=== PATIENT | female | born 1975 | race Asian ===

== ENCOUNTER → 2019-09-25 09:50 | Outpatient (CLI) | payer BC, SELFPAY ==
[2019-10-01 20:36] LABS: Pancreatic Elastase, Fecal >500 (>200)
== END ==
PROVIDERS: Referring Provider Nurse Practitioner Family; Visit Provider Nurse Practitioner Family
DX: R19.7 Diarrhea, unspecified (principal)
CPT/HCPCS: 82656

== ENCOUNTER → 2019-10-23 14:53 | Outpatient (CLI) | payer BC, SELFPAY ==
[2019-10-23 16:02] LABS: Appearance Urine UA CLEAR; Bilirubin Urine UA NEGATIVE (NEGATIVE); Color Urine UA YELLOW; Glucose Urine UA NEGATIVE (Negative); Ketones Urine UA TRACE (NEGATIVE); Leukocyte Esterase Urine UA NEGATIVE (NEGATIVE); Nitrite Urine UA NEGATIVE (Negative); Occult Blood Urine UA 1+ (Negative); Protein Urine UA NEGATIVE (Negative); Specific Gravity Urine UA 1.025 (1.000-1.035); Urobilinogen Urine UA 0.2 E.U./dL (0.2)
[2019-10-23 16:11] LABS: pH Urine UA 5.5 (4.5-8.0)
[2019-10-23 16:12] LABS: Amorphous Sediment Urine 1+; Bacteria Urine Moderate (10-30); Mucus Urine 2+ (Negative); RBC Urine 1-5/HPF (0-5/HPF); Squamous Epithelial Cell Urine 5-10 /HPF (0-5/HPF); WBC Urine 5-10/HPF (0-5/HPF)
[2019-10-23 16:13] LABS: Culture Indicated Urine Specimen Cultured
== END ==
PROVIDERS: PCP Internal Medicine; Referring Provider Specialist; Visit Provider Specialist
DX: R30.0 Dysuria (principal)
CPT/HCPCS: 81001; 87077; 87086; 87147

== ENCOUNTER → 2020-02-08 08:11 | Outpatient (CLI) | payer BC, SELFPAY ==
--- NOTE | 2020-02-08 | DI.MG.S_ITS ---
BILATERAL DIGITAL SCREENING MAMMOGRAM 3D/2D WITH CAD: 02/08/2020 CLINICAL: Routine screening. Comparison is made to exams dated: 08/24/2018 mammogram and 08/27/2016 mammogram - [facility]. The tissue of both breasts is heterogeneously dense. This may lower the sensitivity of mammography. Current study was also evaluated with a Computer Aided Detection (CAD) system. There are benign calcifications in the right breast. No significant masses, calcifications, or other findings are seen in either breast. There has been no significant interval change. IMPRESSION: BENIGN There is no mammographic evidence of malignancy. A 1 year screening mammogram is recommended. This exam was interpreted at Station ID: [id number]. NOTE: For mammograms, a report in lay terms will be sent to the patient. Approximately 15% of breast malignancies will not be visualized mammographically. In the management of a palpable breast mass, a negative mammogram must not discourage biopsy of a clinically suspicious lesion. Electronically Signed By: Gume colindres/lou:02/08/2020 10:43:00 letter sent: Normal Exam ACR BI-RADS Category 2: Benign Finding(s) 3342F
[2020-02-08 15:39] LABS: Hemoglobin A1C% w Est Avg Glu 6.5 % (4.0-6.0)
== END ==
PROVIDERS: PCP Internal Medicine; Referring Provider Internal Medicine; Visit Provider Internal Medicine
DX: Z12.31 Encounter for screening mammogram for malignant neoplasm of breast (principal); E13.9 Other specified diabetes mellitus without complications
CPT/HCPCS: 36415; 77063; 77067; 83036

== ENCOUNTER → 2020-08-01 14:39 | Outpatient (CLI) | payer BC, SELFPAY ==
[2020-08-01 15:37] LABS: Hemoglobin A1C% w Est Avg Glu 7.5 % (4.0-6.0)
[2020-08-01 15:41] LABS: Cholesterol 215 mg/dL (140-199); HDL Cholesterol 38 mg/dL (40-60); LDL Cholesterol Calculated 119 mg/dL (<100); Triglycerides 291 mg/dL (35-150)
== END ==
PROVIDERS: PCP Internal Medicine; Referring Provider Internal Medicine; Visit Provider Internal Medicine
DX: E11.9 Type 2 diabetes mellitus without complications (principal); Z13.6 Encounter for screening for cardiovascular disorders
CPT/HCPCS: 36415; 80061; 83036

== ENCOUNTER → 2020-08-29 12:58 | Outpatient (CLI) | payer BC, SELFPAY ==
[2020-08-29 14:08] LABS: Hemoglobin A1C% w Est Avg Glu 7.4 % (4.0-6.0)
== END ==
PROVIDERS: PCP Internal Medicine; Referring Provider Internal Medicine; Visit Provider Internal Medicine
DX: E11.9 Type 2 diabetes mellitus without complications (principal)
CPT/HCPCS: 36415; 83036

== ENCOUNTER → 2020-12-17 13:25 | Outpatient (CLI) | payer BC, SELFPAY ==
[2020-12-17 14:36] LABS: Hemoglobin A1C% w Est Avg Glu 6.1 % (4.0-6.0)
== END ==
PROVIDERS: PCP Internal Medicine; Referring Provider Internal Medicine; Visit Provider Internal Medicine
DX: E11.69 Type 2 diabetes mellitus with other specified complication (principal)
CPT/HCPCS: 36415; 83036

== ENCOUNTER → 2021-02-09 08:52 | Outpatient (CLI) | payer BC, SELFPAY ==
--- NOTE | 2021-02-09 | DI.MG.S_ITS ---
BILATERAL DIGITAL SCREENING MAMMOGRAM 3D/2D WITH CAD: 02/09/2021 CLINICAL: Routine screening. Family history of breast cancer. Comparison is made to exams dated: 02/08/2020 mammogram - [facility], 08/24/2018 mammogram, and 08/27/2016 mammogram - [facility]. The tissue of both breasts is heterogeneously dense. This may lower the sensitivity of mammography. Current study was also evaluated with a Computer Aided Detection (CAD) system. No significant masses, calcifications, or other findings are seen in either breast. There has been no significant interval change. IMPRESSION: NEGATIVE There is no mammographic evidence of malignancy. A 1 year screening mammogram is recommended. This exam was interpreted at Station ID: [id number]. NOTE: For mammograms, a report in lay terms will be sent to the patient. Approximately 15% of breast malignancies will not be visualized mammographically. In the management of a palpable breast mass, a negative mammogram must not discourage biopsy of a clinically suspicious lesion. Electronically Signed By: Jay hudson/lou:02/09/2021 11:42:39 letter sent: Normal Exam ACR BI-RADS Category 1: Negative 3341F
== END ==
PROVIDERS: PCP Internal Medicine; Referring Provider Internal Medicine; Visit Provider Internal Medicine
DX: Z12.31 Encounter for screening mammogram for malignant neoplasm of breast (principal); Z80.3 Family history of malignant neoplasm of breast
CPT/HCPCS: 77063; 77067

== ENCOUNTER → 2021-03-18 08:07 | Outpatient (CLI) | payer BC, SELFPAY ==
[2021-03-18 09:50] LABS: Alkaline Phosphatase 62 U/L (38-126); Glucose 123 mg/dL (70-100); Sodium 136 mmol/L (137-145)
[2021-03-18 19:56] LABS: Microalbumin Urine Random < 0.6 mg/dL (0-1.6)
[2021-03-18 19:58] LABS: Creatinine Urine Random 17.2 mg/dL
== END ==
PROVIDERS: PCP Internal Medicine; Referring Provider Internal Medicine; Visit Provider Internal Medicine
DX: E11.65 Type 2 diabetes mellitus with hyperglycemia (principal)
CPT/HCPCS: 36415; 80053; 80061; 82043; 82570; 83036

== ENCOUNTER → 2021-06-29 08:01 | Outpatient (CLI) | payer BC, SELFPAY ==
[2021-06-29 09:34] LABS: Free T4, Direct Thyroxine 1.49 ng/dL (0.78-2.19)
[2021-06-29 09:48] LABS: Thyroid Stimulating Hormone 1.28 uIU/mL (0.47-4.68)
== END ==
PROVIDERS: PCP Internal Medicine; Referring Provider Obstetrics & Gynecology; Visit Provider Obstetrics & Gynecology
DX: E07.9 Disorder of thyroid, unspecified (principal)
CPT/HCPCS: 36415; 84439; 84443

== ENCOUNTER → 2021-09-15 14:41 | Outpatient (CLI) | payer BC, SELFPAY ==
[2021-09-15 16:38] LABS: Hemoglobin A1C% w Est Avg Glu 7.4 % (4.0-6.0)
== END ==
PROVIDERS: PCP Internal Medicine; Referring Provider Internal Medicine; Visit Provider Internal Medicine
DX: E11.69 Type 2 diabetes mellitus with other specified complication (principal)
CPT/HCPCS: 36415; 83036

== ENCOUNTER → 2021-11-14 08:04 | Outpatient (CLI) | payer BC, SELFPAY ==
[2021-11-14 09:39] LABS: Hemoglobin A1C% w Est Avg Glu 6.6 % (4.0-6.0)
[2021-11-14 09:59] LABS: BUN Creatinine Ratio 24.3 (6-22); Blood Urea Nitrogen 17 mg/dL (7-17); Calcium 10.1 mg/dL (8.4-10.2); Carbon Dioxide 26 mmol/L (22-32); Chloride 100 mmol/L (98-107); Estimated Glomerular Filt Rate > 60 mL/min (>60); Glucose 116 mg/dL (70-100); HEMOLYSIS < 15 (0-50); Potassium 5.3 mmol/L (3.4-5.1); Sodium 137 mmol/L (137-145)
[2021-11-14 10:20] LABS: Creatinine Urine Random 41.7 mg/dL
[2021-11-14 11:07] LABS: Microalbumi Creatinin Ratio Ur 3309.3 ug/mg CR (<30)
== END ==
PROVIDERS: PCP Internal Medicine; Referring Provider Internal Medicine; Visit Provider Internal Medicine
DX: E11.69 Type 2 diabetes mellitus with other specified complication (principal)
CPT/HCPCS: 36415; 80048; 82043; 82570; 83036

== ENCOUNTER → 2021-11-28 08:44 | Outpatient (CLI) | payer BC, SELFPAY ==
[2021-11-28 10:32] LABS: BUN Creatinine Ratio 28.6 (6-22); Blood Urea Nitrogen 20 mg/dL (7-17); Calcium 9.2 mg/dL (8.4-10.2); Carbon Dioxide 22 mmol/L (22-32); Chloride 102 mmol/L (98-107); Estimated Glomerular Filt Rate > 60 mL/min (>60); Glucose 133 mg/dL (70-100); HEMOLYSIS < 15 (0-50); Potassium 4.4 mmol/L (3.4-5.1); Sodium 136 mmol/L (137-145)
[2021-11-28 10:33] LABS: Creatinine Urine Random 35.7 mg/dL; Protein (Total) Urine Random 8 mg/dL (0-12); Protein Creatinine Ratio Urine 0.22 GRAM/24H
[2021-11-29 07:46] LABS: Hepatitis B Core Antibody Positive (Negative)
[2021-11-30 00:12] LABS: Hepatitis B Surf AB Quant 68.1 mIU/mL (Immunity>9.9)
[2021-11-30 16:36] LABS: Hepatitis B Surface Antigen NEGATIVE s/c (NEGATIVE)
== END ==
PROVIDERS: PCP Internal Medicine; Referring Provider Internal Medicine; Visit Provider Internal Medicine
DX: E11.69 Type 2 diabetes mellitus with other specified complication (principal); Q89.01 Asplenia (congenital); R80.9 Proteinuria, unspecified
CPT/HCPCS: 36415; 80048; 82570; 84156; 86704; 86706; 87340

== ENCOUNTER → 2022-03-24 07:56 | Outpatient (CLI) | payer BC, SELFPAY ==
--- NOTE | 2022-03-24 | DI.MG.S_ITS ---
BILATERAL DIGITAL SCREENING MAMMOGRAM 3D/2D WITH CAD: 03/24/2022 CLINICAL: Routine screening. Family history of breast cancer. Comparison is made to exams dated: 02/09/2021 mammogram, 02/08/2020 mammogram - [facility], and 08/24/2018 mammogram - [facility]. Both breasts are heterogeneously dense, which may obscure small masses (category c / 51-75% glandular tissue). Current study was also evaluated with a Computer Aided Detection (CAD) system. No significant masses, calcifications, or other findings are seen in either breast. There has been no significant interval change. IMPRESSION: NEGATIVE There is no mammographic evidence of malignancy. A 1 year screening mammogram is recommended. Based on the Tyrer Cuzick model (a risk assessment model) the patient's lifetime risk is 11.5% and her 10 year risk is 2.2%. According to the ACR, ACS, and NCCN guidelines, an annual breast MRI exam along with mammogram is recommended if the patient's lifetime risk is 20% or greater. This exam was interpreted at Station ID: [id number]. NOTE: For mammograms, a report in lay terms will be sent to the patient. Approximately 15% of breast malignancies will not be visualized mammographically. In the management of a palpable breast mass, a negative mammogram must not discourage biopsy of a clinically suspicious lesion. Electronically Signed By: Kiel rowe/lou:03/24/2022 13:08:03 letter sent: Normal Exam ACR BI-RADS Category 1: Negative 3341F
== END ==
PROVIDERS: PCP Internal Medicine; Referring Provider Internal Medicine; Visit Provider Internal Medicine
DX: Z12.31 Encounter for screening mammogram for malignant neoplasm of breast (principal); Z80.3 Family history of malignant neoplasm of breast
CPT/HCPCS: 77063; 77067

== ENCOUNTER → 2022-09-15 10:16 | Outpatient (CLI) | payer BC, SELFPAY ==
[2022-09-16 04:26] LABS: x Labcorp Estim. Avg Glu (eAG) 137 mg/dL (.); x Labcorp Hemoglobin A1c 6.4 % (4.8-5.6)
== END ==
PROVIDERS: PCP Internal Medicine; Referring Provider Internal Medicine; Visit Provider Internal Medicine
DX: E11.69 Type 2 diabetes mellitus with other specified complication (principal)
CPT/HCPCS: 36415; 83036

== ENCOUNTER → 2022-09-22 14:40 | Outpatient (CLI) | payer BC, SELFPAY ==
[2022-09-22 15:26] LABS: Add Manual Diff / Slide Review NO; Basophils Absolute Auto 100 /uL (0-100); Eosinophils Absolute Auto 100 /uL (0-450); Eosinophils Percent Auto 1.1 % (2-4); Hematocrit 37.2 % (36-46); Hemoglobin 12.4 g/dL (12.0-16.0); Lymphocytes Absolute Auto 2000 /uL (1100-4500); Lymphocytes Percent Auto 32.7 % (25-40); Mean Corpuscular HGB Conc 33.3 % (30-36); Mean Corpuscular Hemoglobin 26.8 PG (26-34); Mean Corpuscular Volume 80.5 fL (80-100); Monocytes Absolute Auto 300 /uL (0-900); Monocytes Percent Auto 5.4 % (3-14); Neutrophils Absolute Auto 3700 /uL (1500-7000); Neutrophils Percent Auto 59.8 % (50-75); Platelet Count 472 X10^3/uL (150-400); Red Blood Cell Count 4.62 X10^6/uL (4.0-5.2); Red Cell Distribution Width 16.5 % (11.6-14.8); White Blood Cell Count 6.2 X10^3/uL (4.5-11.0)
[2022-09-22 16:02] LABS: HEMOLYSIS < 15 (0-50); Iron 29 ug/dL (37-170)
[2022-09-22 16:03] LABS: Alanine Aminotransferase 19 IU/L (<35); Albumin 4.2 g/dL (3.5-5.0); Albumin Globulin Ratio 1.2 (1.0-2.8); Alkaline Phosphatase 54 U/L (38-126); Aspartate Aminotransferase 22 IU/L (14-36); BUN Creatinine Ratio 29.9 (6-22); Bilirubin Total 0.2 mg/dL (0.2-1.3); Blood Urea Nitrogen 20 mg/dL (7-17); Calcium 9.2 mg/dL (8.4-10.2); Carbon Dioxide 27 mmol/L (22-32); Chloride 98 mmol/L (98-107); Estimated Glomerular Filt Rate > 60 mL/min (>60); Globulin 3.6 g/dL (1.7-4.1); Glucose 218 mg/dL (70-100); HEMOLYSIS < 15 (0-50); Potassium 3.9 mmol/L (3.4-5.1); Sodium 135 mmol/L (137-145); Total Protein 7.8 g/dL (6.3-8.2)
[2022-09-22 16:12] LABS: Percent Iron Saturation 7 % (15-50); Total Iron Binding Capacity 441 ug/dL (265-497); Transferrin 333 mg/dL (206-381)
[2022-09-22 16:32] LABS: Thyroid Stimulating Hormone 0.563 uIU/mL (0.47-4.68)
[2022-09-22 16:33] LABS: Ferritin 5 ng/mL (6-137)
[2022-09-22 16:48] LABS: Vitamin B12 379 pg/mL (239-931)
== END ==
PROVIDERS: PCP Internal Medicine; Referring Provider Internal Medicine; Visit Provider Internal Medicine
DX: R21 Rash and other nonspecific skin eruption (principal)
CPT/HCPCS: 36415; 80053; 82607; 82728; 83540; 83550; 84443; 85025

== ENCOUNTER 2022-10-14 06:37 | Day surgery (SDC) | payer BC, SELFPAY ==
--- NOTE | 2022-10-14 | PATH_ITS ---
[facility] Accession Number: [id number] No. of containers..02 Tissue . 01 Material submitted: . PART A: duodenum - DUODENUM PART B: gastrointestinal site - ANTRUM . 01 Diagnosis: A. Duodenum, Biopsy: Duodenal mucosa with no diagnostic abnormality. Negative for active inflammation, features of sprue, dysplasia, or malignancy. . B. Stomach, Antrum, Biopsy: Antral mucosa with mild chronic gastritis. Negative for Helicobacter by immunohistochemistry. Negative for intestinal metaplasia. Negative for dysplasia and malignancy. [facility] 10/21/2022 1447 Local . 01 Electronically signed: . Anette Kwong MD, Pathologist NPI- [id number] . 01 Gross description: . Part A: DUODENUM: Received in formalin is multiple fragment(s) of conde, soft tissue measuring 0.4 x 0.3 x 0.1 cm in aggregate submitted entirely in 1 cassette(s) Part B: ANTRUM: Received in formalin is 1 fragment(s) of conde, soft tissue measuring 0.4 x 0.2 x 0.1 cm submitted entirely in 1 cassette(s) /[facility] 10/19/2022 1134 Local . 01 Microscopic: . B. An immunohistochemical stain was performed to evaluate for Helicobacter organisms and is negative. The control stain showed appropriate reactivity. . * This test was developed and its performance characteristics determined by [facility]. It has not been cleared or approved by the U.S. Food and Drug Administration. The FDA has determined that such clearance or approval is not necessary. This test is used for clinical purposes. It should not be regarded as investigational or for research. . 01 Pathologist provided ICD-10: Z12.11 . 01 CPT . 857015, 630161, N37869 Specimen Comment: A courtesy copy of this report has been sent to [phone] Performed at: 01 [facility] [address], [place], [place] [id number] MD Gume Mathews MD Phone: [phone]
[2022-10-14 07:11] VITALS: BP 117/76; PULSE 94; RESP 18; TEMP 36.3; O2SAT 98; BMI 22.4
[2022-10-14] MEDS: LACTATED RINGERS 1,000 ML 42 ML IV (07:27)
--- NOTE | 2022-10-14 07:36 | PM.HP.1 ---
History of Present Illness History of Present Illness Date Patient Seen: 10/14/22 Time Patient Seen: 07:39 Chief complaint: Screening Colonoscopy Narrative: Pau is a 47-year-old woman who is here for an EGD and colonoscopy due to a positive fit test and possible anemia. Her most recent hemoglobin was 12. She is never had a colonoscopy before. She has had an EGD years ago. She has had a distal pancreatectomy, splenectomy and a hysterectomy with an appendectomy. [facility] Social History household members: significant other Smoking Status: Never smoker alcohol intake: never Meds Home Medications and Allergies Home Medications Medication Instructions Recorded Confirmed Type Omera 20 mg PO DAILY 10/14/22 10/14/22 History Synjardy XR 12.5 mg PO BID 10/14/22 10/14/22 History Zyrtec 10 mg PO DAILY 10/14/22 10/14/22 History atorvastatin 20 mg PO DAILY 10/14/22 10/14/22 History norethindrone acetate 5 mg PO DAILY 10/14/22 10/14/22 History Allergies Allergy/AdvReac Type Severity Reaction Status Date / Time amoxicillin [From Trimox] Allergy Verified 10/14/22 07:03 dulaglutide [From Trulicity] Allergy Verified 10/14/22 07:03 Exam Vital Signs (past 8 hours): - 10/14/22 07:11 Temperature 97.3 F L Pulse Rate 94 H Respiratory Rate 18 Blood Pressure 117/76 Pulse Oximetry 98 Oxygen Delivery Method Room Air Oxygen Delivery Method Room Air Const General: healthy appearing Assessment & Plan Assessment and plan (1) Positive FIT (fecal immunochemical test): Status: Acute Plan We reviewed the risks and benefits of EGD and colonoscopy for a positive fit test and she would like to proceed.
[2022-10-14 08:21] VITALS: BP 98/66; PULSE 82; RESP 21; TEMP 35.9; O2SAT 99
--- NOTE | 2022-10-14 08:25 | P.OP.EGD&C_ITS ---
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 A bite blocked was placed and monitors were attached to the patient. The patient was positioned in a left lateral decubitus position. Sedation was administered. Once the patient was sedated the endoscope was inserted through the bite block and passed through the esophagus and stomach and into the duodenum. The duodenum appeared normal. Random biopsies were taken from the second portion of the duodenum. We then withdrew the scope into the duodenal bulb. There appeared to be some small ulcers near the pyloric channel. We then withdrew the scope into the stomach. There was some mild antritis and random biopsies were taken from the antrum. The endoscope was retroflexed and a moderate-sized hiatal hernia was noted with some mild mucosal irritation within the hernia. The endoscope was straightned and withdrawn into the esophagus. The remainder of the esophagus appeared no rmal. Findings: Small ulcerations near the pyloric channel and mild antritis. Moderate-sized hiatal hernia with some mild mucosal irritation Next we repositioned the patient for a colonoscopy. A digital rectal exam was performed and was normal. The colonoscope was inserted and advanced to the cecum. The appendiceal orifice was identified and photographed. Terminal ileum was intubated no abnormalities were seen. The scope was slowly withdrawn over greater than 6 minutes. No abnormalities were seen within the colon. The scope was retroflexed in the rectum and no abnormalities were seen. Findings: Normal colon EBL: 5 mL Scope withdrawal time: 7 minutes Sedation minutes: 27 minutes Post-procedure Recommendations: Colonscopy in 10 years Disposition: PACU
[2022-10-14 08:26] VITALS: BP 99/71; PULSE 81; RESP 17; O2SAT 99
[2022-10-14 08:29] VITALS: BP 106/76; PULSE 84; RESP 23; TEMP 36.4; O2SAT 100
--- NOTE | 2022-10-14 08:49 | SUR.PHASEII ---
DC home with instructions and report from procedure. All belongings with patient.
== END 2022-10-14 08:52 | disposition home or self-care (01) ==
PROVIDERS: PCP Internal Medicine; Referring Provider Surgery; Visit Provider Surgery
PROC: 0DJD8ZZ Inspection of Lower Intestinal Tract, Via Natural or Artificial Opening Endoscopic (ICD-10-PCS; CPT 45378; principal; 2022-10-14 07:45)
PROC: 0DJ08ZZ Inspection of Upper Intestinal Tract, Via Natural or Artificial Opening Endoscopic (ICD-10-PCS; CPT 43235; 2022-10-14 07:45)
DX: Z12.11 Encounter for screening for malignant neoplasm of colon (principal); K29.50 Unspecified chronic gastritis without bleeding; K44.9 Diaphragmatic hernia without obstruction or gangrene
CPT/HCPCS: 45378; 43239; J2704

== ENCOUNTER → 2023-02-08 14:30 | Outpatient (CLI) | payer BC, SELFPAY ==
[2023-02-08 15:23] LABS: Add Manual Diff / Slide Review NO; Basophils Absolute Auto 100 /uL (0-100); Basophils Percent Auto 0.9 % (0-2); Eosinophils Absolute Auto 100 /uL (0-450); Eosinophils Percent Auto 1.6 % (2-4); Hematocrit 38.5 % (36-46); Hemoglobin 12.6 g/dL (12.0-16.0); Lymphocytes Absolute Auto 2800 /uL (1100-4500); Lymphocytes Percent Auto 39.1 % (25-40); Mean Corpuscular HGB Conc 32.7 % (30-36); Mean Corpuscular Hemoglobin 26.6 PG (26-34); Mean Corpuscular Volume 81.3 fL (80-100); Monocytes Absolute Auto 500 /uL (0-900); Monocytes Percent Auto 7.5 % (3-14); Neutrophils Absolute Auto 3600 /uL (1500-7000); Neutrophils Percent Auto 50.9 % (50-75); Platelet Count 546 X10^3/uL (150-400); Red Blood Cell Count 4.74 X10^6/uL (4.0-5.2); Red Cell Distribution Width 15.5 % (11.6-14.8); White Blood Cell Count 7.2 X10^3/uL (4.5-11.0)
[2023-02-08 15:33] LABS: Hemoglobin A1C% w Est Avg Glu 7.6 % (4.0-6.0)
[2023-02-08 16:18] LABS: Alanine Aminotransferase 17 IU/L (<35); Albumin 4.4 g/dL (3.5-5.0); Albumin Globulin Ratio 1.2 (1.0-2.8); Alkaline Phosphatase 55 U/L (38-126); Aspartate Aminotransferase 20 IU/L (14-36); BUN Creatinine Ratio 30.3 (6-22); Bilirubin Total 0.2 mg/dL (0.2-1.3); Blood Urea Nitrogen 20 mg/dL (7-17); Calcium 9.9 mg/dL (8.4-10.2); Carbon Dioxide 20 mmol/L (22-32); Chloride 99 mmol/L (98-107); Estimated Glomerular Filt Rate > 60 mL/min (>60); Globulin 3.8 g/dL (1.7-4.1); Glucose 190 mg/dL (70-100); HEMOLYSIS < 15 (0-50); Potassium 4.1 mmol/L (3.4-5.1); Sodium 134 mmol/L (137-145); Total Protein 8.2 g/dL (6.3-8.2)
[2023-02-08 16:22] LABS: Iron 38 ug/dL (37-170)
[2023-02-08 16:49] LABS: Thyroid Stimulating Hormone 0.809 uIU/mL (0.47-4.68)
[2023-02-08 16:53] LABS: Ferritin 8 ng/mL (6-137)
[2023-02-08 17:07] LABS: Vitamin B12 374 pg/mL (239-931)
== END ==
PROVIDERS: PCP Internal Medicine; Referring Provider Internal Medicine; Visit Provider Internal Medicine
DX: R21 Rash and other nonspecific skin eruption (principal); E11.9 Type 2 diabetes mellitus without complications
CPT/HCPCS: 36415; 80053; 82607; 82728; 83036; 83540; 84443; 85025

== ENCOUNTER 2023-02-10 16:42 | Emergency (ER) | payer BC, SELFPAY ==
[2023-02-10 17:16] VITALS: BP 127/72; PULSE 83; RESP 20; TEMP 37.4; O2SAT 97; BMI 23.4
[2023-02-10 18:16] LABS: Add Manual Diff / Slide Review NO; Basophils Absolute Auto 100 /uL (0-100); Basophils Percent Auto 1.1 % (0-2); Eosinophils Absolute Auto 0 /uL (0-450); Eosinophils Percent Auto 0.1 % (2-4); Hematocrit 38.1 % (36-46); Hemoglobin 12.8 g/dL (12.0-16.0); Lymphocytes Absolute Auto 1000 /uL (1100-4500); Mean Corpuscular HGB Conc 33.5 % (30-36); Mean Corpuscular Hemoglobin 26.7 PG (26-34); Mean Corpuscular Volume 79.8 fL (80-100); Monocytes Absolute Auto 100 /uL (0-900); Monocytes Percent Auto 1.8 % (3-14); Neutrophils Absolute Auto 6500 /uL (1500-7000); Platelet Count 503 X10^3/uL (150-400); Red Blood Cell Count 4.78 X10^6/uL (4.0-5.2); Red Cell Distribution Width 15.7 % (11.6-14.8); White Blood Cell Count 7.8 X10^3/uL (4.5-11.0)
[2023-02-10] MEDS: PANTOPRAZOLE 40 MG VIAL IV (18:24)
[2023-02-10] MEDS: MAG HYDROX/ALUMINUM/SIMETH SUS 20 ML, LIDOCAINE VISCOUS 2% 15 ML PO (18:24)
[2023-02-10 18:26] LABS: Alanine Aminotransferase 16 IU/L (<35); Albumin 4.5 g/dL (3.5-5.0); Albumin Globulin Ratio 1.2 (1.0-2.8); Alkaline Phosphatase 60 U/L (38-126); Aspartate Aminotransferase 20 IU/L (14-36); BUN Creatinine Ratio 36.5 (6-22); Bilirubin Total 0.5 mg/dL (0.2-1.3); Blood Urea Nitrogen 23 mg/dL (7-17); Calcium 9.8 mg/dL (8.4-10.2); Carbon Dioxide 24 mmol/L (22-32); Chloride 97 mmol/L (98-107); Creatine Kinase 77 U/L (30-135); Estimated Glomerular Filt Rate > 60 mL/min (>60); Globulin 3.8 g/dL (1.7-4.1); Glucose 116 mg/dL (70-100); HEMOLYSIS < 15 (0-50); Lipase 78 U/L (23-300); Potassium 4.4 mmol/L (3.4-5.1); Sodium 133 mmol/L (137-145); Total Protein 8.3 g/dL (6.3-8.2)
--- NOTE | 2023-02-10 18:35 | ED_ITS ---
HPI - General Adult General Chief complaint: Abdominal Pain Stated complaint: esophageal pain, stomach cramps Time Seen by Provider: 02/10/23 18:07 Source: patient Mode of arrival: Ambulatory Limitations: no limitations History of Present Illness HPI narrative: Patient is a 47-year-old female. Has a history of reflux disease. Is on a proton pump inhibitor. Is scheduled to follow-up with GI in approximately 1 week from now. She is an appointment with her primary doctor tomorrow. For approximately 24-36 hours she has had epigastric abdominal pain that she states is very consistent with her prior history of reflux however she is also having abdominal cramping and back discomfort. She has had abdominal surgeries in the past. She had a mass around her pancreas that was resected years ago. She is also had a splenectomy, cholecystectomy and appendectomy and hysterectomy. The abdominal pain is different from her reflux pain. States that her epigastric pain is consistent with her reflux pain. No vomiting. No fevers. No urinary symptoms. No change in bowel habits. No chest pain. No shortness of breath. Related Data Home Medications Medication Instructions Recorded Confirmed Omera 20 mg PO DAILY 10/14/22 11/08/22 Synjardy XR 12.5 mg PO BID 10/14/22 11/08/22 Zyrtec 10 mg PO DAILY 10/14/22 11/08/22 atorvastatin 20 mg PO DAILY 10/14/22 11/08/22 norethindrone acetate 5 mg PO DAILY 10/14/22 11/08/22 Previous Rx's Medication Instructions Recorded sucralfate 100 mg/mL oral 10 ml PO QACHS #414 mL 02/10/23 suspension (Carafate) Allergies Allergy/AdvReac Type Severity Reaction Status Date / Time amoxicillin [From Trimox] Allergy Verified 11/08/22 13:10 dulaglutide [From Trulicity] Allergy Verified 11/08/22 13:10 Review of Systems Review of Systems ROS Unobtainable: All systems reviewed & are unremarkable except as noted in HPI and below Patient History Social History household members: significant other Smoking Status: Never smoker alcohol intake: never Smoking Status: Never smoker Substance Use Type: does not use Exam Initial Vital Signs Initial Vital Signs: Vital Signs Temperature 99.3 F 02/10/23 17:16 Pulse Rate 83 02/10/23 17:16 Respiratory Rate 20 02/10/23 17:16 Blood Pressure 127/72 02/10/23 17:16 Pulse Oximetry 97 02/10/23 17:16 Oxygen Delivery Method Room Air 02/10/23 17:16 Const General: cooperative and comfortable HENMT Head: normal to inspection and normocephalic Resp Effort & Inspection: normal respiratory effort Auscultation: clear to auscultation bilaterally Cardio Rate: regular rate Rhythm: regular rhythm GI Inspection: normal to inspection and non-distended Palpation: soft, No firm, No guarding and tender (Diffuse) Skin General: no rashes or lesions noted Extrem General: normal to inspection and capillary refill normal Course Orders Ordered: ED Orders 02/10/23 17:42 EKG-12 Lead Stat 02/10/23 18:05 Complete Blood Count AUTO DIFF Stat Comprehensive Metabolic Panel Stat Lipase Stat Troponin & CK Cardiac Panel Stat 02/10/23 18:35 CT abdomen pelvis w con Stat Discontinued Medications Al Hydrox/Mg Hydrox/Simethicone 20 ml/ Lidocaine HCl 15 ml 0 ml PO NOW ONE Stop: 02/10/23 18:09 Last Admin: 02/10/23 18:24 Dose: 35 ml Documented By: BRYANNA Ondansetron HCl (Ondansetron 4 Mg Odt) 4 mg PO NOW PRN PRN Reason: Nausea And Vomiting Ondansetron HCl (Ondansetron 4 Mg/2 Ml Inj) 4 mg IV NOW PRN PRN Reason: Nausea And Vomiting Pantoprazole Sodium (Pantoprazole 40 Mg Vial) 40 mg IV NOW ONE Stop: 02/10/23 18:09 Last Admin: 02/10/23 18:24 Dose: 40 mg Documented By: BRYANNA Vital Signs Vital signs: Vital Signs - 8 hr 02/10/23 17:16 02/10/23 19:52 Temperature 99.3 F Pulse Rate 83 88 Respiratory Rate 20 18 Blood Pressure 127/72 116/82 Pulse Oximetry 97 97 Oxygen Delivery Method Room Air Room Air Medical Decision Making Lab Data Lab results reviewed: Yes I reviewed the patient's lab results. 02/10/23 18:05 02/10/23 18:05 Labs: Lab Results 02/10/23 Range/Units 18:05 WBC 7.8 (4.5-11.0) X10^3/uL RBC 4.78 (4.0-5.2) X10^6/uL Hgb 12.8 (12.0-16.0) g/dL Hct 38.1 (36-46) % MCV 79.8 L (80-100) fL MCH 26.7 (26-34) PG MCHC 33.5 (30-36) % RDW 15.7 H (11.6-14.8) % Plt Count 503 H (150-400) X10^3/uL Neut % (Auto) 84.0 H (50-75) % Lymph % (Auto) 13.0 L (25-40) % [place] % (Auto) 1.8 L (3-14) % Eos % (Auto) 0.1 L (2-4) % Baso % (Auto) 1.1 (0-2) % Neut # (Auto) 6500 (2041-8062) /uL Lymph # (Auto) 1000 L (8430-5766) /uL [place] # (Auto) 100 (0-900) /uL Eos # (Auto) 0 (0-450) /uL Baso # (Auto) 100 (0-100) /uL Sodium 133 L (137-145) mmol/L Potassium 4.4 (3.4-5.1) mmol/L Chloride 97 L (98-107) mmol/L Carbon Dioxide 24 (22-32) mmol/L BUN 23 H (7-17) mg/dL Creatinine 0.63 (0.52-1.04) mg/dL Estimated GFR > 60 (>60) mL/min BUN/Creatinine Ratio 36.5 H (6-22) Glucose 116 H (70-100) mg/dL Calcium 9.8 (8.4-10.2) mg/dL Total Bilirubin 0.5 (0.2-1.3) mg/dL AST 20 (14-36) IU/L ALT 16 (<35) IU/L Alkaline Phosphatase 60 (38-126) U/L Total Creatine Kinase 77 (30-135) U/L Troponin I < 0.012 (0.01-0.034) ng/mL Total Protein 8.3 H (6.3-8.2) g/dL Albumin 4.5 (3.5-5.0) g/dL Globulin 3.8 (1.7-4.1) g/dL Albumin/Globulin Ratio 1.2 (1.0-2.8) Lipase 78 (23-300) U/L Point of Care Testing Test Results Negative Urine Dip Bedside Urine Glucose 1000 mg/dl Bedside Urine Bilirubin - Negative Bedside Urine Ketone +++ 80 Urine Specific [place] 1.010 Bedside Urine Occult Blood - Negative Bedside Urine pH 6.0 Bedside Urine Protein - Negative Bedside Urine Urobilinogen - Negative Bedside Urine Nitrite - Negative Bedside Urine Leukocytes - Negative Esterase Point of care testing: Point of Care Testing Test Results Negative Urine Dip Bedside Urine Glucose 1000 mg/dl Bedside Urine Bilirubin - Negative Bedside Urine Ketone +++ 80 Urine Specific [place] 1.010 Bedside Urine Occult Blood - Negative Bedside Urine pH 6.0 Bedside Urine Protein - Negative Bedside Urine Urobilinogen - Negative Bedside Urine Nitrite - Negative Bedside Urine Leukocytes - Negative Esterase Imaging Data CT scan - abdomen/pelvis: Radiologist's Impression: PROCEDURE: CT ABDOMEN PELVIS W CON INDICATIONS: Generalized abdominal pain TECHNIQUE: After the administration of IV contrast, axial sections were acquired from the lung bases to the pubic symphysis. Coronal and sagittal reformats were performed. For radiation dose reduction, the following was used: automated exposure control, adjustment of mA and/or kV according to patient size. COMPARISON: None. FINDINGS: Image quality: Excellent. Lung bases: Unremarkable. Heart: No significant findings. ABDOMEN: Liver: The liver demonstrates at least 2 lesions that demonstrate low-density centrally and peripheral puddling of contrast. No suspicious liver lesions are seen. Gallbladder: Within normal limits. Biliary ducts: Unremarkable. Pancreas: A portion of the tail of the pancreas is not seen. Spleen: Removed. A likely regenerating nodule can be seen beneath the diaphragm, as on series 2, image 7. Adrenal Glands: Unremarkable. Kidneys and Ureters: There is a 1 cm low-density lesion along the lateral aspect of the left kidney, which measures 25 Hounsfield units. The kidneys demonstrate normal size and enhance symmetrically. There is no hydronephrosis. Stomach and Bowel: Focal wall thickening can be seen involving the proximal small bowel, with mild dilatation. The distal small bowel appears within normal limits. No significant colonic abnormality is seen. Prior appendectomy. Peritoneum: No abnormal intraperitoneal fluid. No free air. Ventral Wall: There is a moderate hiatal hernia. Abdominal Nodes: No retroperitoneal or mesenteric adenopathy by size criteria. Vessels: Aorta and inferior vena cava are normal in size. PELVIS: Pelvic Organs: This patient is status post hysterectomy. No adnexal masses are seen. Bladder: Unremarkable. Pelvic Nodes: No enlarged lymph nodes. Miscellaneous: No inguinal hernias are seen. Bones: Mild levoconvex scoliotic curvature is noted. IMPRESSION: Small bowel wall thickening and mild dilatation can be seen proximally. Enteritis is suspected. A portion of the tail of the pancreas is not seen and is presumed to have been previously resected. Along the lateral aspect of the left kidney, there is a likely hyperdense cyst. When clinically appropriate, please consider a follow-up renal ultrasound for further evaluation/confirmation. 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 She is not having any diarrhea. There is no signs of surgical abnormalities. EKG is unremarkable. Troponin is negative. Low suspicion for ACS. Plan will be is to have her continue to take her proton pump inhibitor. We will add Carafate onto her symptoms. She was informed of the incidental finding of the lesion on her left kidney. She has an appointment scheduled tomorrow with her primary doctor and she was advised to bring that up with her primary doctor to discuss further evaluation. Will discharge patient home for now with strict return precautions. She expressed understanding and agreement. Discharge Plan Departure Patient Disposition: Home Clinical Impression: Gastroesophageal reflux disease, Enteritis, Kidney lesion Instructions: DI for Gastroesophageal Reflux Disease (GERD), DI for Abdominal Pain-Adult Activity Restrictions/Additional Instructions: I recommend that you continue to keep all of your scheduled medical appointments to include the appointment with your primary doctor tomorrow and then with the general surgeon next week. There was an incidental 1 cm lesion noted on the left kidney that I recommend you talk with your primary doctor about this to discuss further evaluation. Continue to take your current reflux disease medication. Add the Carafate that you were given a prescription for today as directed. Return to the emergency department for new or worsening symptoms. Prescriptions: New sucralfate [Carafate] 100 mg/mL suspension 10 ml PO QACHS Qty: 414 2RF No Action Omera 20 mg PO DAILY Synjardy XR 12.5 mg PO BID Zyrtec 10 mg PO DAILY atorvastatin 20 mg PO DAILY norethindrone acetate 5 mg PO DAILY Referrals: Lalita Colon MD [Primary Care Provider] - Stand Alone Forms: Patient Portal/API
[2023-02-10 18:38] LABS: Troponin I < 0.012 ng/mL (0.01-0.034)
[2023-02-10 19:52] VITALS: BP 116/82; PULSE 88; RESP 18; O2SAT 97
== END 2023-02-10 19:56 | disposition home or self-care (01) ==
PROVIDERS: Emergency Medicine; Emergency Provider Emergency Medicine; PCP Internal Medicine
DX: K21.9 Gastro-esophageal reflux disease without esophagitis (principal); K52.9 Noninfective gastroenteritis and colitis, unspecified; N28.9 Disorder of kidney and ureter, unspecified
CPT/HCPCS: 36415; 74177; 80053; 81003; 81025; 82550; 83690; 84484; 85025; 93005; 96374; 99284; C9113

== ENCOUNTER 2023-02-17 07:03 | Day surgery (SDC) | payer BC, SELFPAY ==
[2023-02-17 07:11] VITALS: BP 116/79; PULSE 89; RESP 17; TEMP 36.1; O2SAT 97; BMI 23.4
[2023-02-17] MEDS: LACTATED RINGERS 1,000 ML 150 ML IV (07:27)
--- NOTE | 2023-02-17 08:25 | PM.HP.1 ---
History of Present Illness History of Present Illness Date Patient Seen: 02/17/23 Time Patient Seen: 08:25 Chief complaint: EGD w/poss bx Narrative: Pau is a 47-year-old woman who has a history of ulcers. She would an EGD earlier this year and she is back for a follow-up to see if her ulcers have healed. She has been taking her Protonix. [facility] Social History household members: significant other Smoking Status: Never smoker alcohol intake: never Meds Home Medications and Allergies Home Medications Medication Instructions Recorded Confirmed Type Omera 20 mg PO DAILY 10/14/22 02/17/23 History Synjardy XR 12.5 mg PO BID 10/14/22 02/17/23 History Zyrtec 10 mg PO DAILY 10/14/22 02/17/23 History atorvastatin 20 mg PO DAILY 10/14/22 02/17/23 History norethindrone acetate 5 mg PO DAILY 10/14/22 02/17/23 History Allergies Allergy/AdvReac Type Severity Reaction Status Date / Time amoxicillin [From Trimox] Allergy Verified 11/08/22 13:10 dulaglutide [From Trulicity] Allergy Verified 11/08/22 13:10 Exam Vital Signs (past 8 hours): - 02/17/23 07:11 Temperature 97 F L Pulse Rate 89 Respiratory Rate 17 Blood Pressure 116/79 Pulse Oximetry 97 Oxygen Delivery Method Room Air Oxygen Delivery Method Room Air Const General: healthy appearing Assessment & Plan Assessment and plan (1) Pyloric channel ulcer: Qualifiers: Gastric ulcer chronicity: unspecified ulcer chronicity Qualified Code(s): K25.9 - Gastric ulcer, unspecified as acute or chronic, without hemorrhage or perforation Status: Acute Plan We reviewed the risks and benefits of EGD to surveil her ulcers and she would like to proceed.
[2023-02-17 08:43] VITALS: BP 100/66; PULSE 82; RESP 19; TEMP 36.2; O2SAT 95
--- NOTE | 2023-02-17 08:43 | PM.OP.EGD ---
Operative Date/Time/Diagnoses Date of procedure: 02/17/23 Time of procedure: 08:43 Pre-op diagnosis: History of ulcers Post-op diagnosis: same Procedure & Clinicians Study performed: Esophagogastroduodenoscopy Same procedure as scheduled: Yes Surgeon: George Laguerre Procedure Notes Procedure in detail: Surgeon: George Laguerre MD Anesthesia: Ricarda John CRNA A timeout was performed. A bite blocked was placed. The patient was positioned in the left lateral decubitus position. Anesthesia was administered. The endoscope was inserted through the bite block and passed through the esophagus and stomach and into the duodenum. The duodenal mucosa appeared normal. No abnormalities were seen. The scope was withdrawn into the duodenal bulb and no abnormalities were seen. The scope was withdrawn into the stomach. No ulcers were noted and no other abnormalities were seen. The rest of the stomach was normal. The scope was retroflexed and the small hiatal hernia was observed. The scope was withdrawn into the esophagus and no other abnormalities were seen. The remainder of the esophagus was normal. The scope was withdrawn. The patient was awakened and brought to recovery. Sedation time: 3 minutes Findings: Normal EGD Post-procedure Disposition: PACU
[2023-02-17 08:48] VITALS: BP 99/72; PULSE 78; RESP 16; O2SAT 98
[2023-02-17 08:53] VITALS: BP 108/77; PULSE 91; RESP 12; O2SAT 97
[2023-02-17 08:59] VITALS: BP 113/80; PULSE 87; RESP 17; TEMP 36.2; O2SAT 98
== END 2023-02-17 09:22 | disposition home or self-care (01) ==
PROVIDERS: PCP Internal Medicine; Referring Provider Surgery; Visit Provider Surgery
PROC: 0DJ08ZZ Inspection of Upper Intestinal Tract, Via Natural or Artificial Opening Endoscopic (ICD-10-PCS; CPT 43235; principal; 2023-02-17 08:15)
DX: Z87.19 Personal history of other diseases of the digestive system (principal); K44.9 Diaphragmatic hernia without obstruction or gangrene
CPT/HCPCS: 43235; J2704

== ENCOUNTER → 2023-03-29 16:04 | Outpatient (CLI) | payer BC, SELFPAY ==
--- NOTE | 2023-03-29 | DI.MG.S_ITS ---
BILATERAL DIGITAL SCREENING MAMMOGRAM 3D/2D WITH CAD: 03/29/2023 CLINICAL: Routine screening. Comparison is made to exams dated: 03/24/2022 mammogram, 02/09/2021 mammogram, and 02/08/2020 mammogram - [facility]. Both breasts are heterogeneously dense, which may obscure small masses (category c / 51-75% glandular tissue). Current study was also evaluated with a Computer Aided Detection (CAD) system. No significant masses, calcifications, or other findings are seen in either breast. There has been no significant interval change. IMPRESSION: NEGATIVE There is no mammographic evidence of malignancy. A 1 year screening mammogram is recommended. Based on the Tyrer Cuzick model (a risk assessment model) the patient's lifetime risk is 11.4% and her 10 year risk is 2.3%. According to the ACR, ACS, and NCCN guidelines, an annual breast MRI exam along with mammogram is recommended if the patient's lifetime risk is 20% or greater. This exam was interpreted at Station ID: [id number]. NOTE: For mammograms, a report in lay terms will be sent to the patient. Approximately 15% of breast malignancies will not be visualized mammographically. In the management of a palpable breast mass, a negative mammogram must not discourage biopsy of a clinically suspicious lesion. Electronically Signed By: Ronnell robins/lou:03/30/2023 15:50:57 letter sent: Normal Exam ACR BI-RADS Category 1: Negative [id number]
== END ==
PROVIDERS: PCP Internal Medicine; Referring Provider Internal Medicine; Visit Provider Internal Medicine
DX: Z12.31 Encounter for screening mammogram for malignant neoplasm of breast (principal)
CPT/HCPCS: 77063; 77067

== ENCOUNTER → 2023-04-12 15:07 | Outpatient (CLI) | payer BC, SELFPAY ==
--- NOTE | 2023-04-12 15:08 | DI.US.S_ITS ---
PROCEDURE: US RENAL COMPLETE INDICATIONS: KIDNEY LESION TECHNIQUE: Real-time scanning was performed of the kidneys and bladder, with image documentation. COMPARISON: [facility], CT, CT ABDOMEN PELVIS W CON, 02/10/2023, 18:38. FINDINGS: Kidneys: Kidneys are normal in size. Right kidney measures 9.2 cm long; left kidney measures 11 point cm long. Right renal cortical thickness is 1 point cm; left renal cortical thickness is 1.6 cm. Renal cortical echotexture is normal. No hydronephrosis or nephrolithiasis. There is a 0.9 x 0.8 x 0.9 cm hypoechoic-isoechoic cortical nodule in the lateral aspect of the left kidney, demonstrating subtle posterior enhancement and lack of vascularity on Doppler ultrasound. No suspicious solid mass lesions. Bladder: Pre-void bladder volume is 275.7 mL. Post-void residual is 4.8 mL. Pre-void images demonstrate no intraluminal masses or stones. On pre-void images, both ureteral jets are noted with color Doppler interrogation. (Of note, ureteral jets may not be detectable in up to 25% of cases due to insufficient differences in specific gravity between ureteral and bladder urine). Miscellaneous: No free pelvic fluid. Incidentally noted are 2 hyperechoic masses in liver measuring 2.5 x 1.7 x 2.2 cm and 0.9 x 0.8 x 0.7 cm, correlate with CT finding of 2 hypodense nodules with peripheral nodular enhancement, compatible with hepatic hemangiomas. IMPRESSION: 1. A 0.9 x 0.8 x 0.9 cm cortical nodule is identified in left kidney, correlating with the CT finding of a low-density cortical nodule in the same area. The nodule has hypoechoic-isoechoic echotexture with subtle posterior enhancement and no internal vascularity, suggesting a mildly complex cyst. Consider a follow-up ultrasound in 6 months. 2. Two hyperechoic hepatic masses are identified, most compatible with hemangiomas. Dictated by: Derek Cuadra M.D. on 04/13/2023 at 9:13 Approved by: Derek Cuadra M.D. on 04/13/2023 at 9:22
== END ==
PROVIDERS: PCP Internal Medicine; Referring Provider Internal Medicine; Visit Provider Internal Medicine
DX: N28.9 Disorder of kidney and ureter, unspecified (principal); K76.9 Liver disease, unspecified
CPT/HCPCS: 76770

== ENCOUNTER → 2023-11-18 | Outpatient (CLI) | payer BC, SELFPAY ==
--- NOTE | 2023-11-18 | DI.US.S_ITS ---
PROCEDURE: US RENAL COMPLETE INDICATIONS: FOLLOW UP KIDNEY LESION TECHNIQUE: Real-time scanning was performed of the kidneys and bladder, with image documentation. COMPARISON: [facility], , US RENAL COMPLETE, 04/12/2023, 15:48. FINDINGS: Kidneys: Kidneys are normal in size. Right kidney measures 10.7 cm long; left kidney measures 11.2 cm long. Right renal cortical thickness is 1.3 cm; left renal cortical thickness is 1.7 cm. Renal cortical echotexture is normal. No hydronephrosis or nephrolithiasis. Isoechoic lesion in the left kidney measuring 1.0 x 0.9 x 1.0 centimeter, previously 0.9 x 0.8 x 0.9 centimeter. Bladder: Nondistended. Miscellaneous: No free pelvic fluid. Echogenic lesion in the left hepatic lobe measuring 1.8 centimeters, consistent with hemangioma seen on comparison CT. IMPRESSION: Stable isoechoic left renal lesion. Consider 12 month follow-up. Stable liver hemangioma. Dictated by: Navid Gudino M.D. on 11/28/2023 at 10:22 Approved by: Navid Gudino M.D. on 11/28/2023 at 10:29
[2023-11-18 13:56] LABS: Hemoglobin A1C% w Est Avg Glu 6.1 % (4.0-6.0)
== END ==
PROVIDERS: PCP Internal Medicine; Referring Provider Internal Medicine; Visit Provider Internal Medicine
DX: N28.9 Disorder of kidney and ureter, unspecified (principal); S36.209A Unspecified injury of unspecified part of pancreas, initial encounter; E08.9 Diabetes mellitus due to underlying condition without complications; D18.09 Hemangioma of other sites
CPT/HCPCS: 36415; 76770; 83036

== ENCOUNTER → 2024-04-05 07:58 | Outpatient (CLI) | payer BC, SELFPAY ==
--- NOTE | 2024-04-05 | DI.MG.S_ITS ---
BILATERAL DIGITAL SCREENING MAMMOGRAM 3D/2D WITH CAD: 04/05/2024 CLINICAL: Routine screening. Family history of breast cancer. Comparison is made to exams dated: 03/29/2023 mammogram, 03/24/2022 mammogram, and 02/09/2021 mammogram - [facility]. The breasts are heterogeneously dense, which may obscure small masses (category c / 51-75% glandular tissue). Current study was also evaluated with a Computer Aided Detection (CAD) system. No significant masses, calcifications, or other findings are seen in either breast. There has been no significant interval change. IMPRESSION: NEGATIVE There is no mammographic evidence of malignancy. A 1 year screening mammogram is recommended. Based on the Tyrer Cuzick model (a risk assessment model) the patient's lifetime risk is 11.4% and her 10 year risk is 2.4%. According to the ACR, ACS, and NCCN guidelines, an annual breast MRI exam along with mammogram is recommended if the patient's lifetime risk is 20% or greater. This exam was interpreted at Station ID: [id number]. NOTE: For mammograms, a report in lay terms will be sent to the patient. Approximately 15% of breast malignancies will not be visualized mammographically. In the management of a palpable breast mass, a negative mammogram must not discourage biopsy of a clinically suspicious lesion. Electronically Signed By: Bruna harry/lou:04/05/2024 15:35:30 letter sent: Normal Exam ACR BI-RADS Category 1: Negative
== END ==
PROVIDERS: PCP Internal Medicine; Referring Provider Internal Medicine; Visit Provider Internal Medicine
DX: Z12.31 Encounter for screening mammogram for malignant neoplasm of breast (principal); Z80.3 Family history of malignant neoplasm of breast; R92.333 Mammographic heterogeneous density, bilateral breasts
CPT/HCPCS: 77063; 77067

== ENCOUNTER → 2024-04-07 08:03 | Outpatient (CLI) | payer BC, SELFPAY ==
[2024-04-07 09:09] LABS: Hemoglobin A1C% w Est Avg Glu 6.1 % (4.0-6.0)
[2024-04-07 09:17] LABS: Alanine Aminotransferase 21 IU/L (<35); Albumin 4.1 g/dL (3.5-5.0); Albumin Globulin Ratio 1.2 (1.0-2.8); Alkaline Phosphatase 61 U/L (38-126); Aspartate Aminotransferase 23 IU/L (14-36); BUN Creatinine Ratio 42.6 (6-22); Bilirubin Total 0.5 mg/dL (0.2-1.3); Blood Urea Nitrogen 26 mg/dL (7-17); Calcium 10.2 mg/dL (8.4-10.2); Carbon Dioxide 27 mmol/L (22-32); Chloride 100 mmol/L (98-107); Cholesterol 200 mg/dL (140-199); Estimated Glomerular Filt Rate > 60 mL/min (>60); Globulin 3.3 g/dL (1.7-4.1); Glucose 108 mg/dL (70-100); HDL Cholesterol 71 mg/dL (40-60); HEMOLYSIS < 15 (0-50); LDL Cholesterol Calculated 103 mg/dL (<100); Potassium 4.8 mmol/L (3.4-5.1); Sodium 132 mmol/L (137-145); Total Protein 7.4 g/dL (6.3-8.2); Triglycerides 129 mg/dL (35-150)
[2024-04-07 11:03] LABS: Creatinine Urine Random 15.62 mg/dL
[2024-04-07 11:09] LABS: Microalbumin Urine Random < 0.6 mg/dL (0-1.6)
== END ==
PROVIDERS: PCP Internal Medicine; Referring Provider Internal Medicine; Visit Provider Internal Medicine
DX: E11.9 Type 2 diabetes mellitus without complications (principal)
CPT/HCPCS: 36415; 80053; 80061; 82043; 82570; 83036

== ENCOUNTER → 2024-10-04 07:19 | Outpatient (CLI) | payer BC, SELFPAY ==
[2024-10-04 08:09] LABS: Hemoglobin A1C% w Est Avg Glu 6.3 % (4.0-6.0)
[2024-10-04 08:13] LABS: Alanine Aminotransferase 21 IU/L (<35); Albumin 4.5 g/dL (3.5-5.0); Albumin Globulin Ratio 1.3 (1.0-2.8); Alkaline Phosphatase 74 U/L (38-126); Aspartate Aminotransferase 23 IU/L (14-36); BUN Creatinine Ratio 33.3 (6-22); Bilirubin Total 0.7 mg/dL (0.2-1.3); Blood Urea Nitrogen 20 mg/dL (7-17); Calcium 9.8 mg/dL (8.4-10.2); Carbon Dioxide 27 mmol/L (22-32); Chloride 99 mmol/L (98-107); Cholesterol 156 mg/dL (140-199); Estimated Glomerular Filt Rate > 60 mL/min (>60); Globulin 3.4 g/dL (1.7-4.1); Glucose 120 mg/dL (70-99); HDL Cholesterol 59 mg/dL (40-60); HEMOLYSIS 20 (0-50); LDL Cholesterol Calculated 71 mg/dL (<100); Potassium 4.3 mmol/L (3.4-5.1); Sodium 137 mmol/L (137-145); Total Protein 7.9 g/dL (6.3-8.2); Triglycerides 128 mg/dL (35-150); VLDL Cholesterol Calculated 26 mg/dL (2-30)
[2024-10-04 08:30] LABS: Creatinine Urine Random 45.55 mg/dL
[2024-10-04 08:37] LABS: Microalbumin Urine Random < 0.6 mg/dL (0-1.6)
== END ==
LOC: LAB 07:22
PROVIDERS: PCP Internal Medicine; Referring Provider Internal Medicine; Visit Provider Internal Medicine
DX: E11.9 Type 2 diabetes mellitus without complications (principal)
CPT/HCPCS: 36415; 80053; 80061; 82043; 82570; 83036